=== PATIENT | female | born 1950 | race Caucasian/White ===

== ENCOUNTER → 2020-10-16 | Day surgery (SDC) | payer OTHER, MEDICARE ==
[~2020-10-16] MED LIST: AMLODIPINE-OLM1 EAC2 PO; AMLODIPINE-OLM1 EAC3 PO; AZOR 10-40 MG1 EACH PO; AZOR 5-40 MG T1 EACH PO; BACLOFEN 20MG T20 MG PO; BYSTOLIC10 MG PO; CATAPRES0.1 MG PO; COUMADIN10 MG PO; EFFEXOR XR75 MG PO; FARXIGA10 MG PO; GLUCOPHAGE500 MG PO; GLUCOTROL5 MG PO; HCTZ12.5 MG PO; HUMALOG100 UNIT/3 SC; LEVEMIR FL100 UNIT/1 SC; LIPITOR20 MG PO; LOVENOX80 MG/0.8 SC; MAG-OXIDE 400M400 MG PO; METOPROLOL SUCC50 MG PO; ROSUVASTATIN CA20 MG PO; TOPROL XL 50 MG50 MG PO; TRADJENTA5 MG PO; TRAMADOL HCL50 MG PO; ZOLOFT100 MG PO
[2020-10-16 10:13] LABS: INR 1.08 (0.9-1.2); PROTHROMBIN TIME 13.3 SECONDS (11.4-13.6)
== END | disposition home or self-care (01) ==
LOC: FAS 09:20
PROVIDERS: Student in an Organized Health Care Education/Training Program
DX: D12.3 Benign neoplasm of transverse colon (principal); D12.5 Benign neoplasm of sigmoid colon; D12.6 Benign neoplasm of colon, unspecified; K57.30 Diverticulosis of large intestine without perforation or abscess without bleeding; K64.1 Second degree hemorrhoids; I10 Essential (primary) hypertension; E78.00 Pure hypercholesterolemia, unspecified; E11.9 Type 2 diabetes mellitus without complications; E78.5 Hyperlipidemia, unspecified; G47.30 Sleep apnea, unspecified; M81.0 Age-related osteoporosis without current pathological fracture; M19.90 Unspecified osteoarthritis, unspecified site; Z80.0 Family history of malignant neoplasm of digestive organs; Z20.822 Contact with and (suspected) exposure to COVID-19; Z79.899 Other long term (current) drug therapy; Z90.710 Acquired absence of both cervix and uterus; Z90.49 Acquired absence of other specified parts of digestive tract; Z98.890 Other specified postprocedural states; Z88.0 Allergy status to penicillin; Z88.5 Allergy status to narcotic agent; Z88.7 Allergy status to serum and vaccine; Z79.4 Long term (current) use of insulin; Z95.2 Presence of prosthetic heart valve
CPT/HCPCS: 36415; 82962; 85610; 85730; J2704; J7120